=== PATIENT | male | born 1950 | race Native Hawaiian/Other Pacific Islander ===

== ENCOUNTER 2017-12-26 07:47 | Day surgery (SDC) | payer OTHER, BC | END 2017-12-26 10:02 | LOC: OR 07:47 | PROC: 08RJ3JZ Replacement of Right Lens with Synthetic Substitute, Percutaneous Approach (ICD-10-PCS; principal; 2017-12-26) | DX: H25.811 Combined forms of age-related cataract, right eye (principal) | CPT/HCPCS: 66984; J0171; V2632 ==

== ENCOUNTER 2018-01-16 07:52 | Day surgery (SDC) | payer OTHER, BC | END 2018-01-16 10:10 | disposition home or self-care (01) | LOC: OR 07:52 | PROC: 08RK3JZ Replacement of Left Lens with Synthetic Substitute, Percutaneous Approach (ICD-10-PCS; principal; 2018-01-16) | DX: H25.812 Combined forms of age-related cataract, left eye (principal) | CPT/HCPCS: 66984; J0171; V2632 ==